=== PATIENT | male | born 1985 | race Caucasian/White ===

== ENCOUNTER → 2017-11-26 | Outpatient (CLI) | payer MEDICAID ==
[~2017-11-26] MED LIST: AUG500 PO; CITA-139 PO; CITA-141 PO; CLIN50GE7 TP; CLOT15CR67 TP; ECON15CR10 TP; ERYOO OU; HYDR-4228 PO; LOR10 PO; MELA5TAB15 SL; TETR-30 PO; TOLN10SO3 TOP; [UNRECOGNIZED DRUG - CODE] PO
--- NOTE | 2017-11-26 15:23 | RADIOLOGY IMAGING REPORT ---
[facility] PATIENT NAME: Everett Quinones : 1985 MR: [id number] V: [id number] EXAM DATE: ORDERING PHYSICIAN: VARSHA MADRIGAL TECHNOLOGIST: Location: [facility] Patient: Everett Quinones : 1985 Visit/Account:[id number] Date of Sevice: 11/26/2017 Technique: ANKLE 3 VIEW MIN RIGHT HISTORY: Ankle pain Comparison studies: Left ankle radiographs 11/26/2017 FINDINGS: There is no acute fracture. Small ossific density is seen adjacent to the medial malleolus likely representing sequela of previous injury. Degenerative changes are seen within the tibiotalar j oint. The tibiotalar joint is maintained. No ankle joint effusion. IMPRESSION: 1. No acute osseous process. 2. Degenerative and incidental findings as above. Report Dictated By: Albert Suazo DO at 11/26/2017 3:17 PM Report E-Signed By: Albret Suazo DO at 11/26/2017 3:18 PM WSN:[id number]
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
--- NOTE | 2017-11-26 15:38 | RADIOLOGY IMAGING REPORT ---
[facility] PATIENT NAME: Everett Quinones : 1985 MR: [id number] V: [id number] EXAM DATE: ORDERING PHYSICIAN: VARSHA MADRIGAL TECHNOLOGIST: Location: [facility] Patient: Everett Quinones : 1985 Visit/Account:[id number] Date of Sevice: 11/26/2017 3 views left foot and 3 views right foot Indication: Foot pain. Comparison: None available Findings: Left foot: 3 views of the left foot are obtained. No acute fracture deformity is identified. On this nonweightbe aring exam there is a severe hallux valgus deformity with metatarsus adductus primus. There is near l ateral dislocation at the first MTP joint. Remaining forefoot joint spaces are intact. Hindfoot and m idfoot appears unremarkable. Right foot: 3 views of the right foot are obtained. No acute fracture deformity is identified. On this nonweightb earing exam, there is a severe hallux valgus suggested with a metatarsus adductus primus deformity. R emaining forefoot joints are unremarkable. The midfoot and hindfoot joints are maintained. Impression: 1. Nonweightbearing study demonstrating/suggesting severe hallux valgus and metatarsus adductus primu s. Report Dictated By: Baldemar Loco at 11/26/2017 3:29 PM Report E-Signed By: Baldemar Loco at 11/26/2017 3:34 PM WSN:[id number]
--- NOTE | 2017-11-26 17:25 | RADIOLOGY IMAGING REPORT ---
FACILITY: [facility] [place] PATIENT NAME: Everett Quinones : 1985 MR: [id number] V: [id number] EXAM DATE: ORDERING PHYSICIAN: VARSHA MADRIGAL TECHNOLOGIST: Location: [facility] Patient: Everett Quinones : 1985 Visit/Account:[id number] Date of Sevice: 11/26/2017 Technique: FOOT 3 VIEW RIGHT HISTORY: Bilateral foot pain Comparison studies: None FINDINGS: There is no acute fracture. Present is a hallux valgus deformity. The remaining alignment o f the right foot is maintained. Mild soft tissue swelling overlies the forefoot. IMPRESSION: 1. No acute osseous process. Hallux valgus. Report Dictated By: Albert Suazo DO at 11/26/2017 5:18 PM Report E-Signed By: Albert Suazo DO at 11/26/2017 5:20 PM WSN:[id number]
== END ==
LOC: RAD 13:24
PROVIDERS: ATTEND Family Medicine
DX: M20.12 Hallux valgus (acquired), left foot (principal); Q66.22 Congenital metatarsus adductus; M20.11 Hallux valgus (acquired), right foot

== ENCOUNTER 2019-04-17 20:27 | Emergency (ER) | payer MEDICAID ==
[~2019-04-17 20:27] MED LIST changes: -LACT1CAP6 PO; -MOMR ENA; -QUET50TA PO; -VIT1CAPS39 PO; -VIT1CAPS9 PO
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
[2019-04-17 21:00] VITALS: BP 105/64
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
[2019-04-17] MEDS ORDERED: QUET50TA PO (21:43)
[2019-04-17] MEDS ORDERED: VIT1CAPS39 PO (21:43)
[2019-04-17] MEDS ORDERED: MOMR ENA (21:43)
[2019-04-17] MEDS ORDERED: LACT1CAP6 PO (21:43)
[2019-04-17] MEDS ORDERED: VIT1CAPS9 PO (21:43)
== END 2019-04-17 21:54 | disposition home or self-care (01) ==
LOC: ER 20:36
DX: S09.90XA Unspecified injury of head, initial encounter (principal); S93.402A Sprain of unspecified ligament of left ankle, initial encounter; Q90.9 Down syndrome, unspecified; V19.9XXA Pedal cyclist (driver) (passenger) injured in unspecified traffic accident, initial encounter
CPT/HCPCS: 70450; 72125; 73610; 99284; L1930

== ENCOUNTER → 2019-04-17 | Outpatient (CLI) | payer MEDICAID ==
[~2019-04-17] MED LIST changes: -CITA-139 PO; +CITA-145 PO; +LACT1CAP6 PO; +MOMR ENA; +QUET50TA PO; +VIT1CAPS39 PO; +VIT1CAPS9 PO
== END ==
LOC: AMB 20:05
PROVIDERS: ATTEND Nurse Practitioner
DX: R51 Headache (principal); M25.572 Pain in left ankle and joints of left foot; M25.552 Pain in left hip; R11.0 Nausea
CPT/HCPCS: A0425; A0429